=== PATIENT | male | born 1950 | race Caucasian/White ===

== ENCOUNTER 2019-06-28 07:48 | Inpatient (IN) ==
--- NOTE | 2019-06-08 13:17 | PAT Medication Instructions ---
Medication Instructions Date of Service June 08, 2019 Home Medications hydrocodone-acetaminophen 1 tab PO Q12H PRN melatonin 10 mg PO HS PRN multivitamin 1 tab PO QAM tramadol 100 mg PO Q6H PRN DO NOT take the morning of surgery multivitamin 1 tab PO QAM Take morning of surgery With a small sip of water, OTHERWISE NOTHING TO EAT OR DRINK AFTER MIDNIGHT: hydrocodone-acetaminophen 1 tab PO Q12H PRN (if needed, may be taken up to four hours before surgery) tramadol 100 mg PO Q6H PRN (if needed, may be taken up to four hours before surgery) Take evening before surgery hydrocodone-acetaminophen 1 tab PO Q12H PRN (if needed) melatonin 10 mg PO HS PRN (if needed) tramadol 100 mg PO Q6H PRN (if needed) Other Notes If you have any questions please call us at [phone] or [phone] or [phone] or [phone]
--- NOTE | 2019-06-09 13:47 | Anesthesiology Consultation ---
Date of Service June 09, 2019 Assessment & Plan (1) Encounter for pre-operative examination: Chart Review Chart Review: Acceptable Risk for Surgery and Patient seen in Pre Admission Testing Teaching & Discussion Instructed NPO after midnight before surgery, except medications with 15 cc of water. Medication instructions provided according to the PAT guidelines. History Surgery Operation Date: 06/28/19 07:45 Proposed Procedures p L3-L5 Decompression and Fuision, L5-S1 Hardware Removal, Spinal Cord Monitoring - Jaycob Benson DO Height/Weight Height: 6 ft 3 in Weight: 75.7 kg Allergies Allergy/AdvReac Type Severity Reaction Status Date / Time Sulfa (Sulfonamide Allergy Unknown FEVER,SWEATS Verified 06/06/19 11:17 Antibiotics) WITH TOPICAL APPLICATION levofloxacin [From Levaquin] AdvReac Unknown MUSCLE Verified 06/06/19 11:17 JOINT ACHES APOAEQUORIN AdvReac Unknown FEVER, Uncoded 06/06/19 11:37 SWEATS Medications Home Medications Medication Instructions Recorded Confirmed Last Taken hydrocodone-acetaminophen 1 tab PO Q12H PRN 06/06/19 06/06/19 Unknown melatonin 10 mg PO HS PRN 06/06/19 06/06/19 Unknown multivitamin 1 tab PO QAM 06/06/19 06/06/19 Unknown tramadol 100 mg PO Q6H PRN 06/06/19 06/06/19 Unknown Past Medical History Medical History Arthritis Chronic obstructive pulmonary disease Has never used any inhalers Migraine HX Temporomandibular joint disorder CLICKS-DOES NOT LOCK Exercise / Class Metabolic Activity II 4-5 Yardwork/Stairs/Walk up hill (Denies CP or SOB with 16 step FOS, does many times per day) Past Surgical History Surgical History Fusion of spine LUMBAR History of tonsillectomy History of tooth extraction Past Anesthesia History No Hx of Anesthesia Complications and No Family Hx of Anesthesia Complications History of PONV No Hx of PONV and No Hx of Motion Sickness Social History Smoking Status: Former smoker Do You Dip or Chew Tobacco: No Smoking End Date: QUIT 2014 Hx Alcohol Use: No Hx Substance Use: No Review of Systems Pt denies any recent chest pain, shortness of breath, palpitations, cough, fever or URI. Physical Exam Vital Signs BP: 173/84 (reports systolic was 110 at surgeon's office yesterday, checks at home regularly and this is very high for him) P: 64bpm SPO2: 97% RA T: 98.4 F R: 16 ENMT Mouth: + dentures, + edentulous and + small oral opening Thyromental Distance: < 3.5 Finger Breadths (2) Mallampati Class: III Neck + shortened thyromental distance; neck extension not limited Respiratory normal respiratory effort Auscultation: lungs clear to auscultation bilaterally Cardiovascular Rate/Rhythm: regular rate and regular rhythm Heart Sounds: no murmur Vessels: no carotid bruit Extremities: no edema Testing Laboratory Results 06/09/19 13:58 06/09/19 13:58 PT 10.4 Seconds (9.0-12.0) 06/09/19 13:58 INR 1.0 (0.9-1.1) 06/09/19 13:58 APTT 22.8 Seconds (21.0-31.0) 06/09/19 13:58 Urine Color Yellow 06/09/19 Unknown Urine Appearance Clear (Clear) 06/09/19 Unknown Urine pH 5.5 (4.5-7.5) 06/09/19 Unknown Ur Specific [place] 1.029 (1.000-1.030) 06/09/19 Unknown Urine Protein Trace (Negative) H 06/09/19 Unknown Urine Glucose (UA) Negative (Negative) 06/09/19 Unknown Urine Ketones Negative (Negative) 06/09/19 Unknown Urine Nitrite Negative (Negative) 06/09/19 Unknown Ur Leukocyte Esterase Negative (Negative) 06/09/19 Unknown Urine WBC (Auto) 1-5 /hpf (0-5) 06/09/19 Unknown Urine RBC (Auto) 0-4 /hpf (0-4) 06/09/19 Unknown U Hyaline Cast (Auto) 1-5 /lpf (0-5) 06/09/19 Unknown U Epithel Cells (Auto) >30 /lpf (0-5) H 06/09/19 Unknown Urine Bacteria (Auto) Negative (Negative) 06/09/19 Unknown Blood Type A Negative 06/09/19 13:58 Antibody Screen NEGATIVE 06/09/19 13:58 Electrocardiogram Date: 06/09/19 Findings: + NSR @ (65bpm) Chest X-Ray Date: 06/09/19 Findings: + NAD
--- NOTE | 2019-06-09 14:24 | XRay Report ---
XR chest Pre-admission PA/Lat CLINICAL HISTORY: Preoperative chest COMPARISON STUDY: No previous studies for comparison. FINDINGS: The cardiac and mediastinal contours are normal. There is no evidence of focal pulmonary co nsolidation. There is no evidence of failure. No pleural effusions are visualized.[The patient is mil dly hyperinflated. IMPRESSION: No active disease in the chest. Electronically signed by: Pasha Santana M.D. 06/09/2019 2:22 PM
[2019-06-09 15:36] LABS: Basophils # (auto) 0.01 K/uL (0-0.2); Basophils % (auto) 0.1 %; Eosinophils # (auto) 0.12 K/uL (0-0.5); Eosinophils % (auto) 1.7 %; Hematocrit (blood only) 33.9 % (42-52); Hemoglobin 11.4 g/dL (14.0-18.0); Immature Granulocytes # (auto) 0.02 K/uL (0.00-0.02); Immature Granulocytes % (auto) 0.3 %; Lymphocytes % (auto) 14.3 %; Mean Corpuscular Hemoglobin 32.5 pg (25-34); Mean Corpuscular Hgb Conc 33.6 g/dL (32-36); Mean Corpuscular Volume 96.6 fL (80-100); Mean Platelet Volume 11.2 fL (7.4-10.4); Monocytes # (auto) 0.62 K/uL (0.11-0.59); Monocytes % (auto) 8.9 %; Neutrophils % (auto) 74.7 %; Platelet Count 160 K/uL (130-400); RDW Coefficient of Variation 13.7 % (11.5-14.5); RDW Standard Deviation 48.3 fL (36.4-46.3); Red Blood Count 3.51 M/uL (4.7-6.1); White Blood Count 6.97 K/uL (4.8-10.8)
[2019-06-09 15:42] LABS: Appearance Urine Clear (Clear); Bacteria Urine Automated Negative (Negative); Bilirubin Urine Negative (Negative); Blood Urine Negative (Negative); Color Urine Yellow; Epithelial Cell Urine Auto >30 /lpf (0-5); Glucose Urine UA Negative (Negative); Ketones Urine Negative (Negative); Leukocyte Esterase Urine Negative (Negative); Nitrite Urine Negative (Negative); Protein Urine Trace (Negative); RBC Urine Automated 0-4 /hpf (0-4); Specific Gravity Urine 1.029 (1.000-1.030); Urobilinogen Urine Negative (Negative); pH Urine 5.5 (4.5-7.5)
[2019-06-09 15:44] LABS: Calcium 8.7 mg/dl (8.5-10.1); Creatinine Clr Calc Pharmacy 65.6 ml/min; Est GFR (African American) 74.3; Est GFR (Non-African American) 64.1; Potassium 3.4 mmol/L (3.5-5.1)
[2019-06-09 16:10] LABS: Partial Thromboplastin Ratio 0.8; Partial Thromboplastin Time 22.8 Seconds (21.0-31.0); Prothrombin Time 10.4 Seconds (9.0-12.0)
[~2019-06-28 07:48] MED LIST: ACETAMINOPHEN 500 MG TAB PO SCH; CEFAZOLIN 1000MG 1,000 MG/7.5 ML SYR IV SCH; CeleBREX 200 MG CAP PO SCH; GABAPENTIN 300 MG CAP PO SCH; HYDROmorphone INJ 2 MG/ML SYR/VIAL ONE; LR 15ML/HR IV SCH; MIDAZOLAM HCL 1 MG/ML 2ML VIAL ONE; fentaNYL citrate 100 MCG/2 ML VIAL ONE
--- NOTE | 2019-06-28 09:24 | History & Physical Bridge Note ---
Date of Service June 28, 2019 History & Physical Bridge Note I have examined the patient, reviewed the History & Physical and in the interval since the performance of the History & Physical I have noted the following changes of clinical significance: no changes noted
--- NOTE | 2019-06-28 09:24 | History & Physical Report ---
Date of Service June 28, 2019 Assessment & Plan (1) Neurogenic claudication due to lumbar spinal stenosis: L3-L5 decompression fusion hardware removal L5-S1 Present on Admission?: Yes History of Present Illness Chief Complaint: Back and leg pain Primary Care Provider: Rosalinda Galvez DO This is a 68-year-old male well-known to me that presents with worsening back and leg pain. After failing extensive course of nonoperative care is here for surgical intervention. Allergies Allergy/AdvReac Type Severity Reaction Status Date / Time Sulfa (Sulfonamide Allergy Intermediate FEVER,SWEATS Verified 06/28/19 08:24 Antibiotics) WITH TOPICAL APPLICATION levofloxacin [From Levaquin] AdvReac Intermediate MUSCLE Verified 06/28/19 08:24 JOINT ACHES APOAEQUORIN AdvReac Mild FEVER, Uncoded 06/28/19 08:24 SWEATS Home Medications Home Medications Medication Instructions Recorded Confirmed Type hydrocodone-acetaminophen 1 tab PO Q12H PRN 06/06/19 06/28/19 History melatonin 10 mg PO HS PRN 06/06/19 06/28/19 History multivitamin 1 tab PO QAM 06/06/19 06/28/19 History tramadol 100 mg PO Q6H PRN 06/06/19 06/28/19 History cetirizine [Zyrtec] 5 mg PO DAILY PRN 06/28/19 06/28/19 History pseudoephedrine HCl [Sudafed] 30 mg PO Q4 PRN 06/28/19 06/28/19 History Past Med/Surg History Medical History Arthritis Chronic obstructive pulmonary disease Has never used any inhalers Migraine HX Temporomandibular joint disorder CLICKS-DOES NOT LOCK Surgical History Fusion of spine LUMBAR History of tonsillectomy History of tooth extraction Social History Preferred Language: Pakistani Communication Ability: Effective Human Factors Engineer Required: No Beliefs That Will Affect Care: None Current Living Situation: Spouse and Family Other Information That Helps Us Care for You: No Feels Safe at Home: Yes Safety Concerns: Feels Safe At This Time Smoking Status: Former smoker Do You Dip or Chew Tobacco: No ; Smoking End Date: 2014 ; Second Hand Exposure: No ; Hx Alcohol Use: No Hx Substance Use: No Physical Exam Physical Exam: Patient is alert and oriented neurologically intact. Results & Data Vital Signs (Past 12 Hours) Vital Signs Temp Pulse Resp BP Pulse Ox 06/28/19 08:29 37.0 C 73 16 148/88 H 97
[2019-06-28] MEDS ORDERED: ATROPINE SULFATE 0.1 MG/ML 10ML SYR IV PRN (09:25)
[2019-06-28] MEDS ORDERED: ONDANSETRON INJ 2 MG/ML 2 ML VIAL IV PRN ×2 (09:25→13:42)
[2019-06-28] MEDS ORDERED: ePHEDrine sulfate 50 MG/ML AMP IV PRN (09:25)
[2019-06-28] MEDS ORDERED: BUPIVACAINE/EPINEPHRINE 0.5% MPF 1:200,000 10 ML VIAL ONE (09:36)
[2019-06-28] MEDS ORDERED: BACITRACIN INJ 50,000 UNIT VIAL ONE (09:36)
[2019-06-28] MEDS ORDERED: NEOSTIGMINE METHYLSULFATE 1 MG/ML 10ML VIAL ONE (09:42)
[2019-06-28] MEDS ORDERED: LIDOCAINE HCL 2% 2 ML VIAL/AMP(20MG/ML) INFIL ONE (09:42)
[2019-06-28] MEDS ORDERED: ONDANSETRON INJ 2 MG/ML 2 ML VIAL ONE (09:42)
[2019-06-28] MEDS ORDERED: PROPOFOL IV EMULSION 10 MG/ML 20 ML VIAL IV ONE (09:42)
[2019-06-28] MEDS ORDERED: ROCURONIUM BROMIDE 10 MG/ML 5 ML VIAL ONE (09:42)
[2019-06-28] MEDS ORDERED: DEXAMETHASONE SOD INJ 4 MG/ML VIAL ONE (09:42)
[2019-06-28] MEDS ORDERED: GLYCOPYRROLATE 0.2 MG/ML VIAL ONE (09:42)
[2019-06-28] MEDS ORDERED: HYDROmorphone INJ 2 MG/ML SYR/VIAL ONE (09:43)
[2019-06-28] MEDS ORDERED: fentaNYL citrate 100 MCG/2 ML VIAL ONE ×4 (10:25→12:05)
[2019-06-28] MEDS ORDERED: CEFAZOLIN 250 MG/ML 1 GM VIAL ONE (10:33)
[2019-06-28] MEDS ORDERED: FLOSEAL HEMOSTATIC MATRIX 10ML TOP ONE (10:58)
[2019-06-28] MEDS ORDERED: LARYING-O-JET KIT (LTA) ONE (11:37)
[2019-06-28] MEDS ORDERED: SODIUM CHLORIDE 0.9% INJ 10 ML VIAL ONE (11:37)
[2019-06-28] MEDS ORDERED: ALBUMIN HUMAN 5% 12.5 GM/250 ML VIAL IV ONE (11:50)
--- NOTE | 2019-06-28 12:30 | Operative Report ---
Post Operative Report Pre & Post Diagnosis Operation Date: 06/28/19 09:55 Pre-Op Diagnosis: Lumbar Spinal Stenosis with Neurogenic Claudication Post-Op Diagnosis: Lumbar Spinal Stenosis with Neurogenic Claudication I identified the patient and participated in the time-out.: Yes Procedure Operation Date: 06/28/19 09:55 Actual Procedures #1 removal of posterior instrumentation L5-S1. #2 expiration of fusion L5-S1. #3 lumbar decompression with bilateral medial facetectomies foraminotomies L3-4 L4-5. #4 posterior spinal fusion L3-4 L4-5 per #5 placement posterior instrumentation L3-4 L4-5 per #6 interbody fusion L4-5 per #7 placement of peek cage 13 x 26 mm L4-5 per #8 placement locally harvested morselized autograft in the posterior lateral gutters. #9 placement infuse collagen sponge count master graft in the posterior lateral gutters and ostial amp and interbody space. Surgeon Jaycob Benson, DO Air Conditioning Engineer None Estimated Blood Loss 475 Findings Consistent with Post-Op Diagnosis Specimens None Indications This is a 68-year-old male well-known to me the presents with a missed diagnosis after failing stents course of nonoperative care is here for surgical invention. Description of Procedure Patient was met with identified informed consent obtained. Patient was then taken to the operative suite underwent an patient placed in prone position check stable to posterior frame all bony prominences well-padded eyes inspected to ensure no external pressure placed upon. This point the lumbar spine was prepped and draped in a sterile fashion. Sharp dissection with assistance of Bovie cautery was performed down to and exposing the lamina and transverse processes of L3-L4 and the instrumentation L5 and S1 levels bilaterally. I then proceeded move the hardware bilaterally explore the fusion mass noting it to be intact. Then performed a complete laminectomy of L4 and L3 from a caudal cephalad fashion including bilateral medial facetectomies and foraminotomies addressing severe stenosis. Pedicle screws were then placed in L3-L4-L5 bilaterally with assistance of fluoroscopy the purposes brandon placed. By way of a transforaminal portion left complete discectomy was performed endplates curetted to subcortical bleeding bone and a 13 x 26 mm peek cage filled with osteo-bone graft tapped in position. The rods were then locked in final position bilaterally. The transverse processes of L3-L4-L5 bur to subcortical bleeding bone. Infuse collagen sponge master graft local autograft placed in the posterior lateral gutters. 15 round JAXON drain inserted. The incision was then closed with 1 Vicryl in the fascia 2-0 Vicryl subcutaneously and 4 Monocryl for final skin closure. Steri-Strip sterile dressings placed. Patient will continue PACU stable condition. Please note spinal cord monitoring was utilized that the procedure no changes noted. I attest to the content of the Intraoperative Record and any orders documented therein. Any exceptions are noted below.
[2019-06-28] MEDS: fentaNYL citrate 100 MCG/2 ML VIAL IV PRN ×4 (12:44→12:59)
[2019-06-28] MEDS: HYDROmorphone INJ 2 MG/ML SYR/VIAL IV PRN ×2 (13:04→13:09)
--- NOTE | 2019-06-28 13:36 | Fluoroscopy Report ---
FL lumbar spine 2-3V CLINICAL HISTORY: L3-L5 DECOMPRESSION AND FUSION/ L5-S1 HARDWARE REMOVAL COMPARISON STUDY: None FLUOROSCOPY TIME: 17 seconds NUMBER OF FLUOROSCOPIC IMAGES: 2 FINDINGS: Image intensifier support for L5-S1 hardware removal as well as L3-L5 decompression and fus ion IMPRESSION: Image support for lumbar laminectomy and fusion as well as hardware removal. ACT 112: Negative or not required by law. The above report was generated using voice recognition software. It may contain grammatical, syntax or spelling errors. Electronically signed by: Mello Oleary M.D. 06/28/2019 1:35 PM
[2019-06-28] MEDS ORDERED: MAGNESIUM HYDROXIDE SUSP 30 ML UDC PO PRN (13:42)
[2019-06-28] MEDS ORDERED: CETIRIZINE HCL 10 MG TABLET PO PRN (13:42)
[2019-06-28] MEDS ORDERED: bisacodyL 10 MG SUPP PR PRN (13:42)
[2019-06-28] MEDS ORDERED: PROMETHAZINE HCL 12.5 MG in SODIUM CHLORIDE 0.9% 50 ML IV PRN (13:42)
[2019-06-28] MEDS ORDERED: LORazepam 0.5 MG/1 ML VIAL IV PRN (13:42)
[2019-06-28] MEDS ORDERED: ACETAMINOPHEN 1,000 MG/100 ML VIAL IV PRN (13:42)
[2019-06-28] MEDS ORDERED: HYDROmorphone INJ 0.5 MG/0.5 ML SYR IV PRN (13:42)
[2019-06-28] MEDS ORDERED: LORazepam 0.5 MG TAB PO PRN (13:42)
[2019-06-28] MEDS ORDERED: NALOXONE HCL 0.4 MG/1 ML VIAL/CARP IV PRN (13:42)
[2019-06-28] MEDS ORDERED: METOCLOPRAMIDE HCL INJ 5 MG/ML 2 ML VIAL IV PRN (13:42)
[2019-06-28] MEDS ORDERED: SOD PHOSPHATE/SOD BIPHOSPHATE ENEMA 132 ML BTL PR PRN (13:42)
[2019-06-28] MEDS ORDERED: PSEUDOEPHEDRINE HCL 30 MG TAB PO PRN (13:42)
[2019-06-28] MEDS ORDERED: FAMOTIDINE 20 MG TAB PO PRN (13:42)
[2019-06-28] MEDS ORDERED: ACETAMINOPHEN 500 MG TAB PO PRN (13:42)
[2019-06-28] MEDS ORDERED: DO NOT ADMINISTER FLU VACCINE PRN (13:42)
[2019-06-28] MEDS ORDERED: DO NOT ADMINISTER PNEUMOCOCCAL VACCINE PRN (13:42)
[2019-06-28] MEDS ORDERED: ALUMINUM/MAGNESIUM SUSP 30 ML UDC PO PRN (13:42)
[2019-06-28] MEDS ORDERED: ONDANSETRON 4 MG OD TAB PO PRN (13:42)
[2019-06-28] MEDS ORDERED: HYDROmorphone INJ 1 MG/ML SYRINGE IV PRN (13:42)
[2019-06-28] MEDS: SODIUM CHLORIDE 0.9% 1000ML 1,000 ML IV SCH ×2 (13:45→20:13)
--- NOTE | 2019-06-28 14:27 | Anesthesiology Progress Note ---
Date of Service June 28, 2019 Anesthesia Post Procedure Vital Signs Vital Signs: Temp Pulse Pulse Resp BP BP Pulse Ox 06/28/19 13:25 71 16 141/83 H 99 06/28/19 13:15 76 16 129/84 97 06/28/19 13:05 36.3 C L 80 16 129/74 97 06/28/19 12:55 72 16 149/90 H 100 06/28/19 12:45 70 16 144/83 H 100 06/28/19 12:38 36.4 C L 84 16 155/83 H 100 06/28/19 08:29 37.0 C 73 16 148/88 H 97 Pain Intensity Lower Back: Pain Intensity: 6 Transfer of Care Handoff Completed per policy Notes Mental Status: alert / awake / arousable Patient Amnestic to Procedure: Yes Nausea / Vomiting: adequately controlled Pain: adequately controlled Airway Patency, RR, SpO2: stable & adequate BP & HR: stable & adequate Hydration State: stable & adequate Anesthetic Complications: no major complications apparent
[2019-06-28] MEDS: KETOROLAC TROMETHAMINE 15 MG/ML VIAL IV SCH ×2 (14:58→20:16)
--- NOTE | 2019-06-28 15:38 | Hospitalist Consultation ---
Date of Consultation June 28, 2019 Assessment & Plan (1) S/P spinal surgery: This is a 68-year-old male with PMH of right leg neuropathic pain, COPD, chronic pain syndrome, stable AAA without rupture and other medical problems listed below who is POD#0 s/p L3-L5 decompression and fusion with spinal cord monitoring by Dr. Benson. -POD#0 s/p L3-L5 decompression and fusion with spinal cord monitoring by Dr. Benson -Pt is doing well post-operatively -Per ortho for pain control, wound care, anticoagulation and activities -Monitor H&H, continue incentive spirometry, PT/OT when appropriate (2) AAA (abdominal aortic aneurysm) without rupture: H/o AAA without rupture. Had aortic ultrasound on Jun 15 2019 that showed enlarging fusiform AAA with distal measurement: 4.6 cm x 4.0 cm. (3.6 x 3.0 cm previously in 2017) -Control BP with PRN hydralazine- not on any home medications -Should follow up with vascular surgery upon discharge (3) Neuropathic pain of right lower extremity: Takes tramadol 100mg Q6H at home for neuropathic pain of RLE, specifically R foot PCP: Leonor Dispo: Per primary service Patient seen in collaboration with Dr. Lee. Please see addendum. Thank you for this consultation. We will follow the patient with you during their hospital stay. You can reach a [facility] via pager @ [phone]. Supervising Physician Co-Signing Physician Notes Pt was seen an examined. Agreed with Piedad MOORE exam, assessment and plan. 68-year-old male with PMH of right leg neuropathic pain, COPD, chronic pain syndrome, stable AAA without rupture, s/p L3-L5 decompression and fusion with spinal cord monitoring performed today by Dr. Benson after failing outpatient conservative management. No post op complication. Continue pain control. will monitor H/H in am. Fall precaution. PT/OT eval. Continue conservative management. Will monitor BP due to the history AAA. Will need to follow with vascular outpatient for surveillance. Will continue monitor during this hospital course. MD Rosa History of Present Illness Reason for Consultation: Postop medical management Attending Physician: Jaycob Benson DO History of Present Illness This is a 68-year-old male with PMH of right leg neuropathic pain, COPD, chronic pain syndrome, stable AAA without rupture and other medical problems listed below who is POD#0 s/p L3-L5 decompression and fusion with spinal cord monitoring by Dr. Benson. Patient feeling pretty well postoperatively. Endorsing moderate surgical site pain but denies distal paresthesias or leg pain. Tolerating clear diet without any nausea vomiting or abdominal pain. No lightheadedness, visual changes, chest pain, palpitations or shortness of breath. No dysuria or issues urinating-catheter in place. Last bowel movement was normal and was 2 days ago. PCP is Dr. Galvez. Allergies Allergy/AdvReac Type Severity Reaction Status Date / Time Sulfa (Sulfonamide Allergy Intermediate FEVER,SWEATS Verified 06/28/19 08:24 Antibiotics) WITH TOPICAL APPLICATION levofloxacin [From Levaquin] AdvReac Intermediate MUSCLE Verified 06/28/19 08:24 JOINT ACHES APOAEQUORIN AdvReac Mild FEVER, Uncoded 06/28/19 08:24 SWEATS Home Medications Home Medications Medication Instructions Recorded Confirmed Type hydrocodone-acetaminophen 1 tab PO Q12H PRN 06/06/19 06/28/19 History melatonin 10 mg PO HS PRN 06/06/19 06/28/19 History multivitamin 1 tab PO QAM 06/06/19 06/28/19 History tramadol 100 mg PO Q6H PRN 06/06/19 06/28/19 History cetirizine [Zyrtec] 5 mg PO DAILY PRN 06/28/19 06/28/19 History pseudoephedrine HCl [Sudafed] 30 mg PO Q4 PRN 06/28/19 06/28/19 History Patient History Medical History AAA (abdominal aortic aneurysm) without rupture Arthritis Chronic obstructive pulmonary disease Has never used any inhalers Former smoker Migraine HX Neuropathic pain of right lower extremity Temporomandibular joint disorder CLICKS-DOES NOT LOCK Surgical History Fusion of spine LUMBAR History of tonsillectomy History of tooth extraction Family History Other Heart disease Social History Preferred Language: Grenadian Communication Ability: Effective Fws Faculty Assistant Required: No Beliefs That Will Affect Care: None Current Living Situation: Spouse and Family Other Information That Helps Us Care for You: No Feels Safe at Home: Yes Safety Concerns: Feels Safe At This Time Smoking Status: Former smoker Do You Dip or Chew Tobacco: No ; Smoking End Date: QUIT 2014- ~60 pack years ; Second Hand Exposure: No ; Hx Alcohol Use: No Hx Substance Use: No Review of Systems Review of Systems: At least ten systems reviewed and negative except as noted in the HPI. Physical Exam Physical Exam: General Appearance: WD/WN, vitals as above, NAD, sitting up in bed, pleasant, conversing easily Head: normocephalic, atraumatic Eyes: normal inspection, PERRL, conjunctivae normal, anicteric sclerae ENT: external ear and nose normal, oropharynx normal Neck: trachea midline, no thyromegaly normal visual inspection Respiratory: normal respiratory effort, lungs clear to auscultation, no wheeze, rales, rhonchi. Normal insp/exp effort, no accessory muscle use Cardiovascular: regular rate, rhythm, no murmur, normal peripheral pulses. Vessels: no JVD or carotid bruit Chest: normal inspection of chest Abdomen/GI: normal bowel sounds, soft, nontender, no hepatosplenomegaly : Guerrero catheter in place draining light yellow urine Extremities/Musculoskelatal: Lumbosacral dressing clean, dry, intact. JAXON drain visualized. No cyanosis or clubbing, extremities motor strength 5/5 Neurologic: PERRL,CN's II-XI intact bilaterally and moves all extremities Psychiatric: A+Ox3, euthymic affect Skin: no rashes, normal color, warm/dry Results & Data Vital Signs (Past 12 Hours) Vital Signs Temp Pulse Pulse Pulse Resp BP BP 06/28/19 15:24 36.5 C 60 16 156/83 H 06/28/19 14:35 74 16 150/79 H 06/28/19 14:05 65 16 140/76 06/28/19 13:35 36.4 C L 73 16 161/83 H 06/28/19 13:25 71 16 141/83 H 06/28/19 13:15 76 16 129/84 06/28/19 13:05 36.3 C L 80 16 129/74 06/28/19 12:55 72 16 149/90 H 06/28/19 12:45 70 16 144/83 H 06/28/19 12:38 36.4 C L 84 16 155/83 H 06/28/19 08:29 37.0 C 73 16 148/88 H Pulse Ox 06/28/19 15:24 94 06/28/19 14:35 94 06/28/19 14:05 100 06/28/19 13:35 100 06/28/19 13:25 99 06/28/19 13:15 97 06/28/19 13:05 97 06/28/19 12:55 100 06/28/19 12:45 100 06/28/19 12:38 100 06/28/19 08:29 97
[2019-06-28] MEDS ORDERED: HydrALAZINE 10 MG TAB PO PRN (17:02)
[2019-06-28] MEDS: TRAMADOL HCL 50 MG TABLET PO PRN ×2 (18:11→23:13)
[2019-06-28] MEDS ORDERED: COUGH DROP (SUGAR FREE) LOZ 24 LOZ/1 BOX BUCCAL ONE (18:11)
[2019-06-28] MEDS: CEFAZOLIN 2000MG 2,000 MG/15 ML SYR IV SCH (18:15)
[2019-06-28] MEDS: OXYCODONE HCL IR 5 MG TAB (IMMEDIATE RELEASE) PO PRN (20:15)
[2019-06-28] MEDS: DOCUSATE SODIUM/SENNA 50/8.6MG TAB PO SCH (20:20)
[2019-06-29] MEDS: OXYCODONE HCL IR 5 MG TAB (IMMEDIATE RELEASE) PO PRN ×6 (00:16→22:11)
[2019-06-29] MEDS: KETOROLAC TROMETHAMINE 15 MG/ML VIAL IV SCH ×2 (02:24→08:49)
[2019-06-29] MEDS: CEFAZOLIN 2000MG 2,000 MG/15 ML SYR IV SCH (02:24)
[2019-06-29] MEDS: POLYETHYLENE (MIRALAX) 17 GM PACK PO SCH ×4 (05:52→23:49)
[2019-06-29 06:22] LABS: Basophils # (auto) 0.01 K/uL (0-0.2); Basophils % (auto) 0.1 %; Hematocrit (blood only) 24.2 % (42-52); Hemoglobin 8.2 g/dL (14.0-18.0); Immature Granulocytes # (auto) 0.01 K/uL (0.00-0.02); Immature Granulocytes % (auto) 0.1 %; Lymphocytes # (auto) 0.53 K/uL (1.2-3.4); Lymphocytes % (auto) 6.1 %; Mean Corpuscular Hemoglobin 32.9 pg (25-34); Mean Corpuscular Hgb Conc 33.9 g/dL (32-36); Mean Corpuscular Volume 97.2 fL (80-100); Mean Platelet Volume 10.8 fL (7.4-10.4); Monocytes # (auto) 0.75 K/uL (0.11-0.59); Monocytes % (auto) 8.7 %; Neutrophils # (auto) 7.32 K/uL (1.4-6.5); Platelet Count 113 K/uL (130-400); RDW Coefficient of Variation 13.7 % (11.5-14.5); RDW Standard Deviation 48.5 fL (36.4-46.3); Red Blood Count 2.49 M/uL (4.7-6.1); White Blood Count 8.62 K/uL (4.8-10.8)
[2019-06-29] MEDS: TRAMADOL HCL 50 MG TABLET PO PRN ×4 (06:30→20:27)
[2019-06-29 06:59] LABS: BUN Creatinine Ratio 17.8 (10-20); Calcium 8.3 mg/dl (8.5-10.1); Creatinine Clr Calc Pharmacy 71.2 ml/min; Est GFR (African American) 85.7; Est GFR (Non-African American) 73.9; Potassium 4.3 mmol/L (3.5-5.1)
--- NOTE | 2019-06-29 07:36 | Hospitalist Progress Note ---
Date of Service June 29, 2019 Assessment & Plan (1) S/P spinal surgery: This is a 68-year-old male with PMH of right leg neuropathic pain, COPD, chronic pain syndrome, stable AAA without rupture and other medical problems listed below who is POD#1 s/p L3-L5 decompression and fusion with spinal cord monitoring by Dr. Benson. -POD#1 s/p L3-L5 decompression and fusion with spinal cord monitoring by Dr. Benson -Pt is doing well post-operatively -Per ortho for pain control, wound care, anticoagulation and activities -Monitor H&H, continue incentive spirometry, PT/OT when appropriate Acute blood loss anemia - post. surg., and poss. dilutional - JAXON drain 110cc overnight - current Hgb 8.2, cont. to monitor (2) AAA (abdominal aortic aneurysm) without rupture: H/o AAA without rupture. Had aortic ultrasound on Jun 15 2019 that showed enlarging fusiform AAA with distal measurement: 4.6 cm x 4.0 cm. (3.6 x 3.0 cm previously in 2017) -Control BP with PRN hydralazine- not on any home medications -Should follow up with vascular surgery upon discharge (3) Neuropathic pain of right lower extremity: Takes tramadol 100mg Q6H at home for neuropathic pain of RLE, specifically R foot - currently concerned about his pain regimen as outpt, says he follows w/ pain clinic PCP: Leonor Dispo: Per primary service Thank you for this consultation. We will follow the patient with you during their hospital stay. You can reach a member of the [facility] Team 19/01 via pager @ [phone]. Subjective No acute events overnight. Pt is laying in bed, in NAD. he is worried about his pain management outside of hospital. says he follows with PCP and pain clinic. Currently denies any chest pain, shortness of breath, fever, chills, abd. pain, nausea, vomiting. Says he eats and has chronic constipation. Review of Systems Review of Systems: All systems reviewed & are unremarkable except as noted in HPI & below Constitutional: no fever and no chills Respiratory: no cough, no dyspnea and no pain on inspiration Cardiovascular: no chest pain and no palpitations Gastrointestinal: no abdominal pain, no nausea and no vomiting Physical Exam Physical Exam: General Appearance: pt is sitting up in bed, in NAD Head: normocephalic, atraumatic Eyes: normal inspection, PERRL, EOMI, conjunctivae normal, anicteric sclerae ENT: external ear and nose normal, oropharynx normal Neck: trachea midline, no thyromegaly normal visual inspection Respiratory: normal respiratory effort, lungs clear to auscultation, no wheeze, rales, rhonchi Cardiovascular: regular rate, rhythm, no murmur, normal peripheral pulses. Vessels: no JVD or carotid bruit Chest: normal inspection of chest Abdomen/GI: normal bowel sounds, soft, nontender, nondistended, no guarding : Guerrero catheter in place draining light yellow urine Extremities/MSK: Lumbosacral dressing clean, dry, intact. JAXON w/ serosang. fluid. No cyanosis or clubbing, extremities motor strength 5/5 Neurologic: PERRL,CN's II-XI intact bilaterally and moves all extremities Psychiatric: A+Ox3, euthymic affect Skin: no rashes, normal color, warm/dry Results & Data Vital Signs (Past 12 Hours) Vital Signs Temp Pulse Resp BP Pulse Ox 06/29/19 07:00 36.6 C 66 16 126/70 97 06/29/19 02:26 36.7 C 60 16 118/68 97 06/28/19 23:15 36.4 C L 62 15 144/74 H 97 06/28/19 20:49 146/73 H Laboratory Results 06/29/19 06/29/19 06/29/19 Range/Units 08:19 05:45 05:45 WBC 8.62 (4.8-10.8) K/uL RBC 2.49 L (4.7-6.1) M/uL Hgb 8.2 L (14.0-18.0) g/dL Hct 24.2 L (42-52) % MCV 97.2 (80-100) fL MCH 32.9 (25-34) pg MCHC 33.9 (32-36) g/dL RDW Std Deviation 48.5 H (36.4-46.3) fL RDW Coeff of Pam 13.7 (11.5-14.5) % Plt Count 113 L (130-400) K/uL MPV 10.8 H (7.4-10.4) fL Immature Gran % (Auto) 0.1 % Neut % (Auto) 85.0 % Lymph % (Auto) 6.1 % Franklin % (Auto) 8.7 % Eos % (Auto) 0.0 % Baso % (Auto) 0.1 % Immature Gran # (Auto) 0.01 (0.00-0.02) K/uL Neut # (Auto) 7.32 H (1.4-6.5) K/uL Lymph # (Auto) 0.53 L (1.2-3.4) K/uL Franklin # (Auto) 0.75 H (0.11-0.59) K/uL Eos # (Auto) 0.00 (0-0.5) K/uL Baso # (Auto) 0.01 (0-0.2) K/uL Sodium 140 (136-145) mmol/L Potassium 4.3 (3.5-5.1) mmol/L Chloride 109 H (98-107) mmol/L Carbon Dioxide 27 (21-32) mmol/L Anion Gap 4.0 (3-11) BUN 18 (7-18) mg/dl Creatinine 1.04 (0.6-1.4) mg/dl Est Cr Clr Drug Dosing 71.2 ml/min Est GFR ( Amer) 85.7 Est GFR (Non-Af Amer) 73.9 BUN/Creatinine Ratio 17.8 (10-20) Glucose 129 H (70-99) mg/dl Calcium 8.3 L (8.5-10.1) mg/dl Specimen Hemolysis Hepatitis C Ab Screen Pending Blood Type Antibody Screen Crossmatch 06/28/19 Range/Units 08:19 WBC (4.8-10.8) K/uL RBC (4.7-6.1) M/uL Hgb (14.0-18.0) g/dL Hct (42-52) % MCV (80-100) fL MCH (25-34) pg MCHC (32-36) g/dL RDW Std Deviation (36.4-46.3) fL RDW Coeff of Pam (11.5-14.5) % Plt Count (130-400) K/uL MPV (7.4-10.4) fL Immature Gran % (Auto) % Neut % (Auto) % Lymph % (Auto) % Franklin % (Auto) % Eos % (Auto) % Baso % (Auto) % Immature Gran # (Auto) (0.00-0.02) K/uL Neut # (Auto) (1.4-6.5) K/uL Lymph # (Auto) (1.2-3.4) K/uL Franklin # (Auto) (0.11-0.59) K/uL Eos # (Auto) (0-0.5) K/uL Baso # (Auto) (0-0.2) K/uL Sodium (136-145) mmol/L Potassium (3.5-5.1) mmol/L Chloride (98-107) mmol/L Carbon Dioxide (21-32) mmol/L Anion Gap (3-11) BUN (7-18) mg/dl Creatinine (0.6-1.4) mg/dl Est Cr Clr Drug Dosing ml/min Est GFR ( Amer) Est GFR (Non-Af Amer) BUN/Creatinine Ratio (10-20) Glucose (70-99) mg/dl Calcium (8.5-10.1) mg/dl Specimen Hemolysis Hepatitis C Ab Screen Blood Type A Negative Antibody Screen NEGATIVE Crossmatch See Detail Medications Administered Current Inpatient Medications Acetaminophen (Tylenol) 1,000 mg PO Q8H PRN PRN Reason: MILD Pain Rating 1,2,3 Stop: 07/28/19 13:41 Al Hydrox/Mg Hydrox/Simethicone (Maalox) 30 ml PO Q6H PRN PRN Reason: Dyspepsia Stop: 07/28/19 13:41 Bisacodyl (Dulcolax) 10 mg CO DAILY PRN PRN Reason: Constipation Stop: 07/28/19 13:41 Cetirizine HCl (Zyrtec) 5 mg PO DAILY PRN PRN Reason: Congestion Stop: 07/28/19 13:41 Diphenhydramine HCl (Benadryl Capsule) 25 mg PO Q6H PRN PRN Reason: Allergic Rhinitis/Insomnia Stop: 07/28/19 13:41 Famotidine (Pepcid) 20 mg PO Q12H PRN PRN Reason: Dyspepsia Stop: 07/28/19 13:41 Hydralazine HCl (Apresoline) 10 mg PO Q8H PRN PRN Reason: SBP >165 Stop: 07/28/19 17:14 Hydromorphone HCl (Dilaudid) 0.5 mg IV Q3H PRN PRN Reason: moderate pain (scale 4-6) Stop: 07/12/19 13:41 Hydromorphone HCl (Dilaudid) 1 mg IV Q3H PRN PRN Reason: severe pain (scale 7-10) Stop: 07/12/19 13:41 Last Admin: 06/28/19 14:26 Dose: 1 mg Documented by: Hydroxyzine HCl (Vistaril) 25 mg PO Q8H PRN PRN Reason: Anxiety Stop: 07/28/19 13:41 Lorazepam (Ativan) 0.5 mg in 1 mls @ 0.5 mls/min IV Q8H PRN PRN Reason: Sedation/Anxiety Stop: 07/28/19 13:41 Acetaminophen (Ofirmev) 1,000 mg in 100 mls @ 400 mls/hr IV Q8H PRN PRN Reason: MILD Pain Rating 1,2,3 Stop: 06/29/19 13:41 Promethazine HCl 12.5 mg/ (Sodium Chloride) 50.5 mls @ 204 mls/hr IV Q6H PRN PRN Reason: Nausea &/or Vomiting Stop: 07/28/19 13:41 Influenza Virus Vaccine Quadrival (Flu Vaccine, Do Not Administer) 1 ea N/A PRN PRN PRN Reason: Notification Stop: 07/28/19 13:41 Ketorolac Tromethamine (Toradol) 15 mg IV Q6H ESTER Stop: 06/29/19 09:01 Last Admin: 06/29/19 02:24 Dose: 15 mg Documented by: Lorazepam (Ativan) 0.5 mg PO Q8H PRN PRN Reason: Sedation/Anxiety Stop: 07/28/19 13:41 Magnesium Hydroxide (Milk Of Magnesia) 30 ml PO DAILY PRN PRN Reason: Constipation Stop: 07/28/19 13:41 Metoclopramide HCl (Reglan) 10 mg IV Q6H PRN PRN Reason: Nausea &/or Vomiting Stop: 07/28/19 13:41 Naloxone HCl (Narcan) 0.1 mg IV Q5M PRN; Protocol PRN Reason: Oversedation/Resp Depression Stop: 07/28/19 13:41 Ondansetron HCl (Zofran) 4 mg IV Q6H PRN PRN Reason: Nausea &/or Vomiting Stop: 07/28/19 13:41 Ondansetron HCl (Zofran Odt) 4 mg PO Q6H PRN PRN Reason: Nausea Stop: 07/28/19 13:41 Oxycodone HCl (Roxicodone Immediate Rel) 5 - 10 mg PO Q4H PRN PRN Reason: Moderate-Severe Pain Stop: 07/12/19 13:41 Last Admin: 06/29/19 04:17 Dose: 10 mg Documented by: Pneumococcal Polyvalent Vaccine (Pneumococcal Vacc, Do Not Administer) 1 ea N/A PRN PRN PRN Reason: Notification Stop: 07/28/19 13:41 Polyethylene Glycol (Miralax Powder Packet) 17 gm PO Q6 ESTER Stop: 07/29/19 05:59 Last Admin: 06/29/19 05:52 Dose: 17 gm Documented by: Pseudoephedrine HCl (Suphedrine Sinus Congestion) 30 mg PO Q4H PRN PRN Reason: Congestion Stop: 07/28/19 13:41 Senna/Docusate Sodium (Senokot S) 2 tab PO HS ESTER Stop: 07/28/19 20:59 Last Admin: 06/28/19 20:20 Dose: 2 tab Documented by: Sodium Biphosphate/Sodium Phosphate (Fleet Enema) 132 ml CO ONE PRN PRN Reason: Constipation Stop: 07/28/19 13:41 Tramadol HCl (Ultram) 50 - 100 mg PO Q4H PRN PRN Reason: Moderate-Severe Pain Stop: 07/28/19 13:41 Last Admin: 06/29/19 06:30 Dose: 100 mg Documented by:
[2019-06-29] MEDS ORDERED: SODIUM CHLORIDE 0.9% 250 ML IV PRN (10:47)
--- NOTE | 2019-06-29 10:49 | Orthopedic Progress Note ---
Date of Service June 29, 2019 Assessment & Plan (1) Neurogenic claudication due to lumbar spinal stenosis: At this time we will encourage physical therapy today advance his bowel regiment. I will transfuse 2 units today. Present on Admission?: Yes Subjective Patient is leg pain is improved. Back pain controlled. Physical Exam Physical Exam: On exam he is in the chair at the bedside. Is good strength testing. Appears comfortable. Results & Data Vital Signs (Past 12 Hours) Vital Signs Temp Pulse Resp BP Pulse Ox 06/29/19 07:00 36.6 C 66 16 126/70 97 06/29/19 02:26 36.7 C 60 16 118/68 97 06/28/19 23:15 36.4 C L 62 15 144/74 H 97
[2019-06-29 17:14] LABS: Hematocrit (blood only) 28.8 % (42-52); Hemoglobin 9.9 g/dL (14.0-18.0)
[2019-06-29] MEDS: DOCUSATE SODIUM/SENNA 50/8.6MG TAB PO SCH (20:27)
[2019-06-30] MEDS: TRAMADOL HCL 50 MG TABLET PO PRN ×5 (00:49→19:16)
[2019-06-30] MEDS: OXYCODONE HCL IR 5 MG TAB (IMMEDIATE RELEASE) PO PRN ×5 (03:23→22:09)
[2019-06-30] MEDS: POLYETHYLENE (MIRALAX) 17 GM PACK PO SCH ×3 (05:08→17:15)
[2019-06-30 05:50] LABS: Hematocrit (blood only) 32.8 % (42-52); Hemoglobin 10.8 g/dL (14.0-18.0)
[2019-06-30 06:24] LABS: BUN Creatinine Ratio 16.2 (10-20); Calcium 8.7 mg/dl (8.5-10.1); Creatinine Clr Calc Pharmacy 63.8 ml/min; Est GFR (African American) 75.1; Est GFR (Non-African American) 64.8; Potassium 3.9 mmol/L (3.5-5.1)
--- NOTE | 2019-06-30 08:31 | Hospitalist Progress Note ---
Date of Service June 30, 2019 Assessment & Plan (1) S/P spinal surgery: This is a 68-year-old male with PMH of right leg neuropathic pain, COPD, chronic pain syndrome, stable AAA without rupture and other medical problems listed below who is POD#2 s/p L3-L5 decompression and fusion with spinal cord monitoring by Dr. Benson. -POD#2 s/p L3-L5 decompression and fusion with spinal cord monitoring by Dr. Benson -Pt is doing well post-operatively -Per ortho for pain control, wound care, anticoagulation and activities -Monitor H&H, continue incentive spirometry, PT/OT when appropriate Acute blood loss anemia - post. surg., and poss. dilutional - JAXON continues to drain serosang. fluid but much decreased now - Hgb 8.2 yesterday, received 2 units of pRBCs, current Hgb 10.8 - cont. to monitor (2) AAA (abdominal aortic aneurysm) without rupture: H/o AAA without rupture. Had aortic ultrasound on Jun 15 2019 that showed enlarging fusiform AAA with distal measurement: 4.6 cm x 4.0 cm. (3.6 x 3.0 cm previously in 2017) -Control BP with PRN hydralazine- not on any home medications -Should follow up with vascular surgery upon discharge (3) Neuropathic pain of right lower extremity: Takes tramadol 100mg Q6H at home for neuropathic pain of RLE, specifically R foot - currently concerned about his pain regimen as outpt, says he follows w/ pain clinic PCP: Leonor Dispo: Per primary service Thank you for this consultation. We will follow the patient with you during their hospital stay. You can reach a member of the [facility] Hospitalist Team 19/01 via pager @ [phone]. Subjective Patient is sitting on the edge of the bed, in no acute distress. Walker is at his side, he says that he has been walking in the hallway with a walker by himself, without much difficulty. Received blood transfusion yesterday, 2 units. He says that he feels much better now. Back pain and leg pain much better controlled. Denies any fevers, chills, chest pain, shortness of breath, abdominal pain. However he has not had any BM yet. Discussed to try suppository, patient agreed. Review of Systems Review of Systems: All systems reviewed & are unremarkable except as noted in HPI & below Constitutional: no fever and no chills Respiratory: no cough, no dyspnea and no pain on inspiration Cardiovascular: no chest pain, no dyspnea on exertion, no palpitations and no edema Gastrointestinal: + constipation; no abdominal pain, no nausea and no vomiting Physical Exam Physical Exam: General Appearance: pt is sitting up at the edge of the bed, in NAD Head: normocephalic, atraumatic Eyes: normal inspection, PERRL, EOMI, conjunctivae normal, anicteric sclerae ENT: external ear and nose normal, oropharynx normal Neck: trachea midline, no thyromegaly normal visual inspection Respiratory: normal respiratory effort, lungs clear to auscultation, no wheeze, rales, rhonchi Cardiovascular: regular rate, rhythm, no murmur, normal peripheral pulses. Vessels: no JVD or carotid bruit Chest: normal inspection of chest Abdomen/GI: normal bowel sounds, soft, nontender, nondistended, no guarding Extremities/MSK: Lumbosacral dressing clean, dry, intact. JAXON w/ serosang. fluid. No cyanosis or clubbing, extremities motor strength 5/5, ambulates with a walker Neurologic: PERRL,CN's II-XI intact bilaterally and moves all extremities spontaneously and without much difficulty Psychiatric: A+Ox3, euthymic affect Skin: no rashes, normal color, warm/dry Results & Data Vital Signs (Past 12 Hours) Vital Signs Temp Pulse Pulse Resp BP Pulse Ox 06/30/19 07:29 37 C 74 18 132/70 93 06/30/19 06:26 37.2 C 78 18 126/69 93 06/29/19 23:53 37.2 C 06/29/19 23:20 37.8 C H 80 16 149/71 H 92 Laboratory Results 06/30/19 06/30/19 06/29/19 Range/Units 04:59 04:59 16:55 Hgb 10.8 L 9.9 L (14.0-18.0) g/dL Hct 32.8 L 28.8 L (42-52) % Sodium 136 (136-145) mmol/L Potassium 3.9 (3.5-5.1) mmol/L Chloride 102 (98-107) mmol/L Carbon Dioxide 27 (21-32) mmol/L Anion Gap 7.0 (3-11) BUN 19 H (7-18) mg/dl Creatinine 1.16 (0.6-1.4) mg/dl Est Cr Clr Drug Dosing 63.8 ml/min Est GFR ( Amer) 75.1 Est GFR (Non-Af Amer) 64.8 BUN/Creatinine Ratio 16.2 (10-20) Glucose 116 H (70-99) mg/dl Calcium 8.7 (8.5-10.1) mg/dl Hepatitis C Ab Screen (Neg) Blood Type Antibody Screen Crossmatch 06/29/19 06/28/19 Range/Units 08:19 08:19 Hgb (14.0-18.0) g/dL Hct (42-52) % Sodium (136-145) mmol/L Potassium (3.5-5.1) mmol/L Chloride (98-107) mmol/L Carbon Dioxide (21-32) mmol/L Anion Gap (3-11) BUN (7-18) mg/dl Creatinine (0.6-1.4) mg/dl Est Cr Clr Drug Dosing ml/min Est GFR ( Amer) Est GFR (Non-Af Amer) BUN/Creatinine Ratio (10-20) Glucose (70-99) mg/dl Calcium (8.5-10.1) mg/dl Hepatitis C Ab Screen Neg (Neg) Blood Type A Negative Antibody Screen NEGATIVE Crossmatch See Detail Medications Administered Current Inpatient Medications Acetaminophen (Tylenol) 1,000 mg PO Q8H PRN PRN Reason: MILD Pain Rating 1,2,3 Stop: 07/28/19 13:41 Al Hydrox/Mg Hydrox/Simethicone (Maalox) 30 ml PO Q6H PRN PRN Reason: Dyspepsia Stop: 07/28/19 13:41 Bisacodyl (Dulcolax) 10 mg OK DAILY PRN PRN Reason: Constipation Stop: 07/28/19 13:41 Cetirizine HCl (Zyrtec) 5 mg PO DAILY PRN PRN Reason: Congestion Stop: 07/28/19 13:41 Diphenhydramine HCl (Benadryl Capsule) 25 mg PO Q6H PRN PRN Reason: Allergic Rhinitis/Insomnia Stop: 07/28/19 13:41 Famotidine (Pepcid) 20 mg PO Q12H PRN PRN Reason: Dyspepsia Stop: 07/28/19 13:41 Hydralazine HCl (Apresoline) 10 mg PO Q8H PRN PRN Reason: SBP >165 Stop: 07/28/19 17:14 Hydromorphone HCl (Dilaudid) 0.5 mg IV Q3H PRN PRN Reason: moderate pain (scale 4-6) Stop: 07/12/19 13:41 Hydromorphone HCl (Dilaudid) 1 mg IV Q3H PRN PRN Reason: severe pain (scale 7-10) Stop: 07/12/19 13:41 Last Admin: 06/28/19 14:26 Dose: 1 mg Documented by: Hydroxyzine HCl (Vistaril) 25 mg PO Q8H PRN PRN Reason: Anxiety Stop: 07/28/19 13:41 Lorazepam (Ativan) 0.5 mg in 1 mls @ 0.5 mls/min IV Q8H PRN PRN Reason: Sedation/Anxiety Stop: 07/28/19 13:41 Promethazine HCl 12.5 mg/ (Sodium Chloride) 50.5 mls @ 204 mls/hr IV Q6H PRN PRN Reason: Nausea &/or Vomiting Stop: 07/28/19 13:41 Influenza Virus Vaccine Quadrival (Flu Vaccine, Do Not Administer) 1 ea N/A PRN PRN PRN Reason: Notification Stop: 07/28/19 13:41 Lorazepam (Ativan) 0.5 mg PO Q8H PRN PRN Reason: Sedation/Anxiety Stop: 07/28/19 13:41 Magnesium Hydroxide (Milk Of Magnesia) 30 ml PO DAILY PRN PRN Reason: Constipation Stop: 07/28/19 13:41 Metoclopramide HCl (Reglan) 10 mg IV Q6H PRN PRN Reason: Nausea &/or Vomiting Stop: 07/28/19 13:41 Naloxone HCl (Narcan) 0.1 mg IV Q5M PRN; Protocol PRN Reason: Oversedation/Resp Depression Stop: 07/28/19 13:41 Ondansetron HCl (Zofran) 4 mg IV Q6H PRN PRN Reason: Nausea &/or Vomiting Stop: 07/28/19 13:41 Ondansetron HCl (Zofran Odt) 4 mg PO Q6H PRN PRN Reason: Nausea Stop: 07/28/19 13:41 Oxycodone HCl (Roxicodone Immediate Rel) 5 - 10 mg PO Q4H PRN PRN Reason: Moderate-Severe Pain Stop: 07/12/19 13:41 Last Admin: 06/30/19 07:27 Dose: 10 mg Documented by: Pneumococcal Polyvalent Vaccine (Pneumococcal Vacc, Do Not Administer) 1 ea N/A PRN PRN PRN Reason: Notification Stop: 07/28/19 13:41 Polyethylene Glycol (Miralax Powder Packet) 17 gm PO Q6 ESTER Stop: 07/29/19 05:59 Last Admin: 06/30/19 05:08 Dose: 17 gm Documented by: Pseudoephedrine HCl (Suphedrine Sinus Congestion) 30 mg PO Q4H PRN PRN Reason: Congestion Stop: 07/28/19 13:41 Senna/Docusate Sodium (Senokot S) 2 tab PO HS ESTER Stop: 07/28/19 20:59 Last Admin: 06/29/19 20:27 Dose: 2 tab Documented by: Sodium Biphosphate/Sodium Phosphate (Fleet Enema) 132 ml OK ONE PRN PRN Reason: Constipation Stop: 07/28/19 13:41 Tramadol HCl (Ultram) 50 - 100 mg PO Q4H PRN PRN Reason: Moderate-Severe Pain Stop: 07/28/19 13:41 Last Admin: 06/30/19 06:39 Dose: 100 mg Documented by:
--- NOTE | 2019-06-30 08:34 | Anesthesiology Progress Note ---
Date of Service June 30, 2019 Anesthesia Post Procedure Vital Signs Vital Signs: Temp Pulse Pulse Pulse Resp BP BP 06/30/19 07:29 37 C 74 18 132/70 06/30/19 06:26 37.2 C 78 18 126/69 06/29/19 23:53 37.2 C 06/29/19 23:20 37.8 C H 80 16 149/71 H 06/29/19 20:22 70 149/71 H 06/29/19 15:14 36.8 C 70 18 144/70 H 06/29/19 14:11 36.7 C 71 16 152/78 H 06/29/19 13:41 36.8 C 71 16 135/76 06/29/19 13:26 36.8 C 70 16 136/66 06/29/19 13:25 36.8 C 70 16 136/66 06/29/19 13:06 36.7 C 70 18 145/74 H 06/29/19 13:05 36.7 C 70 18 145/74 H 06/29/19 12:43 36.9 C 69 16 142/68 H 06/29/19 12:15 36.3 C L 63 16 135/73 06/29/19 11:44 36.9 C 63 16 136/67 06/29/19 11:30 37.0 C 65 18 131/68 06/29/19 11:10 36.7 C 66 18 143/64 H Pulse Ox 06/30/19 07:29 93 06/30/19 06:26 93 06/29/19 23:53 06/29/19 23:20 92 06/29/19 20:22 97 06/29/19 15:14 99 06/29/19 14:11 99 06/29/19 13:41 100 06/29/19 13:26 99 06/29/19 13:25 99 06/29/19 13:06 99 06/29/19 13:05 99 06/29/19 12:43 98 06/29/19 12:15 100 06/29/19 11:44 99 06/29/19 11:30 99 06/29/19 11:10 96 Pain Intensity Lower Back: Pain Intensity: 6 Notes Mental Status: alert / awake / arousable and participated in evaluation Nausea / Vomiting: adequately controlled Pain: adequately controlled Airway Patency, RR, SpO2: stable & adequate BP & HR: stable & adequate Hydration State: stable & adequate
--- NOTE | 2019-06-30 08:40 | Orthopedic Progress Note ---
Date of Service June 30, 2019 Assessment & Plan (1) Neurogenic claudication due to lumbar spinal stenosis: At this time continue physical therapy monitor JAXON output anticipate discharge home tomorrow. Present on Admission?: Yes Subjective Back pain is controlled leg symptoms markedly improved. Physical Exam Physical Exam: Patient is in bed he is comfortable with excellent strength testing. Results & Data Vital Signs (Past 12 Hours) Vital Signs Temp Pulse Pulse Resp BP Pulse Ox 06/30/19 07:29 37 C 74 18 132/70 93 06/30/19 06:26 37.2 C 78 18 126/69 93 06/29/19 23:53 37.2 C 06/29/19 23:20 37.8 C H 80 16 149/71 H 92
[2019-06-30] MEDS: DOCUSATE SODIUM/SENNA 50/8.6MG TAB PO SCH (20:19)
[2019-07-01] MEDS: TRAMADOL HCL 50 MG TABLET PO PRN ×2 (00:21→07:45)
[2019-07-01] MEDS: POLYETHYLENE (MIRALAX) 17 GM PACK PO SCH ×2 (00:21→04:59)
[2019-07-01] MEDS: OXYCODONE HCL IR 5 MG TAB (IMMEDIATE RELEASE) PO PRN ×2 (04:58→10:05)
[2019-07-01 05:12] LABS: Hematocrit (blood only) 33.3 % (42-52); Hemoglobin 11.4 g/dL (14.0-18.0)
--- NOTE | 2019-07-01 09:48 | Hospitalist Progress Note ---
Date of Service July 01, 2019 Assessment & Plan (1) S/P spinal surgery: This is a 68-year-old male with PMH of right leg neuropathic pain, COPD, chronic pain syndrome, stable AAA without rupture and other medical problems listed below who is POD#3 s/p L3-L5 decompression and fusion with spinal cord monitoring by Dr. Benson. -POD#3 s/p L3-L5 decompression and fusion with spinal cord monitoring by Dr. Benson -Pt is doing well post-operatively -Per ortho for pain control, wound care, anticoagulation and activities -Monitor H&H, continue incentive spirometry, PT/OT when appropriate -hgb stable at 11.4 Acute blood loss anemia - post. surg., and poss. dilutional - JAXON continues to drain serosang. fluid but much decreased now (45 cc overnight) - received 2 units of pRBCs 2 days ago for hgb of 8.2, current Hgb 11.4 - cont. to monitor Constipation - pt reports chronic constipation - this is going to be exacerbated w/ opioid pain meds - used suppository yesterday and had a small BM - recommend to discharge on bowel regimen (2) AAA (abdominal aortic aneurysm) without rupture: H/o AAA without rupture. Had aortic ultrasound on Jun 15 2019 that showed enlarging fusiform AAA with distal measurement: 4.6 cm x 4.0 cm. (3.6 x 3.0 cm previously in 2017) -Control BP with PRN hydralazine- not on any home medications -Should follow up with vascular surgery as outpt upon discharge (3) Neuropathic pain of right lower extremity: Takes tramadol 100mg Q6H at home for neuropathic pain of RLE, specifically R foot - pain seems to be improved PCP: Leonor Dispo: Per primary service Thank you for this consultation. We will follow the patient with you during their hospital stay. You can reach a member of the [facility] Hospitalist Team 19/01 via pager @ [phone]. Subjective Patient is sitting up in bed, in no acute distress. Says he feels better and that he had a good night. He was walking earlier in a hallway with a walker. Had BM yesterday after suppository was used. Received blood transfusion, 2 units of pRBCs 2 days ago. JAXON drained 45 cc of serosang. fluid overnight. Hgb stable. Denies any fevers, chills, chest pain, shortness of breath, abdominal pain. However he has not had any BM yet. Discussed to try suppository, patient agreed. Review of Systems Review of Systems: All systems reviewed & are unremarkable except as noted in HPI & below Constitutional: no fever, no chills and no fatigue Respiratory: no cough, no dyspnea and no pain on inspiration Cardiovascular: no chest pain, no dyspnea on exertion, no palpitations and no edema Gastrointestinal: no abdominal pain, no nausea and no vomiting Physical Exam Physical Exam: General Appearance: pt is sitting up in bed, in NAD Head: normocephalic, atraumatic Eyes: normal inspection, PERRL, EOMI, conjunctivae normal, anicteric sclerae ENT: external ear and nose normal, oropharynx normal Neck: trachea midline, no thyromegaly normal visual inspection Respiratory: normal respiratory effort, lungs clear to auscultation, no wheeze, rales, rhonchi Cardiovascular: regular rate, rhythm, no murmur, normal peripheral pulses. Vessels: no JVD or carotid bruit Abdomen/GI: normal bowel sounds, soft, nontender, nondistended, no guarding Extremities/MSK: Lumbosacral dressing clean, dry, intact. JAXON w/ serosang. fluid. No cyanosis or clubbing, extremities motor strength 5/5, ambulates with a walker Neurologic: PERRL,CN's II-XI intact bilaterally and moves all extremities spontaneously and without much difficulty Psychiatric: A+Ox3, euthymic affect Skin: no rashes, normal color, warm/dry Results & Data Vital Signs (Past 12 Hours) Vital Signs Temp Pulse Resp BP Pulse Ox 07/01/19 06:35 36.6 C 69 16 130/70 95 06/30/19 23:37 36.8 C 65 16 124/68 93 Laboratory Results 07/01/19 Range/Units 05:01 Hgb 11.4 L (14.0-18.0) g/dL Hct 33.3 L (42-52) % Medications Administered Current Inpatient Medications Acetaminophen (Tylenol) 1,000 mg PO Q8H PRN PRN Reason: MILD Pain Rating 1,2,3 Stop: 07/28/19 13:41 Last Admin: 06/30/19 22:09 Dose: 1,000 mg Documented by: Al Hydrox/Mg Hydrox/Simethicone (Maalox) 30 ml PO Q6H PRN PRN Reason: Dyspepsia Stop: 07/28/19 13:41 Bisacodyl (Dulcolax) 10 mg IA DAILY PRN PRN Reason: Constipation Stop: 07/28/19 13:41 Last Admin: 06/30/19 22:09 Dose: 10 mg Documented by: Cetirizine HCl (Zyrtec) 5 mg PO DAILY PRN PRN Reason: Congestion Stop: 07/28/19 13:41 Diphenhydramine HCl (Benadryl Capsule) 25 mg PO Q6H PRN PRN Reason: Allergic Rhinitis/Insomnia Stop: 07/28/19 13:41 Famotidine (Pepcid) 20 mg PO Q12H PRN PRN Reason: Dyspepsia Stop: 07/28/19 13:41 Hydralazine HCl (Apresoline) 10 mg PO Q8H PRN PRN Reason: SBP >165 Stop: 07/28/19 17:14 Hydromorphone HCl (Dilaudid) 0.5 mg IV Q3H PRN PRN Reason: moderate pain (scale 4-6) Stop: 07/12/19 13:41 Hydromorphone HCl (Dilaudid) 1 mg IV Q3H PRN PRN Reason: severe pain (scale 7-10) Stop: 07/12/19 13:41 Last Admin: 06/28/19 14:26 Dose: 1 mg Documented by: Hydroxyzine HCl (Vistaril) 25 mg PO Q8H PRN PRN Reason: Anxiety Stop: 07/28/19 13:41 Lorazepam (Ativan) 0.5 mg in 1 mls @ 0.5 mls/min IV Q8H PRN PRN Reason: Sedation/Anxiety Stop: 07/28/19 13:41 Promethazine HCl 12.5 mg/ (Sodium Chloride) 50.5 mls @ 204 mls/hr IV Q6H PRN PRN Reason: Nausea &/or Vomiting Stop: 07/28/19 13:41 Influenza Virus Vaccine Quadrival (Flu Vaccine, Do Not Administer) 1 ea N/A PRN PRN PRN Reason: Notification Stop: 07/28/19 13:41 Lorazepam (Ativan) 0.5 mg PO Q8H PRN PRN Reason: Sedation/Anxiety Stop: 07/28/19 13:41 Magnesium Hydroxide (Milk Of Magnesia) 30 ml PO DAILY PRN PRN Reason: Constipation Stop: 07/28/19 13:41 Last Admin: 06/30/19 20:23 Dose: 30 ml Documented by: Metoclopramide HCl (Reglan) 10 mg IV Q6H PRN PRN Reason: Nausea &/or Vomiting Stop: 07/28/19 13:41 Naloxone HCl (Narcan) 0.1 mg IV Q5M PRN; Protocol PRN Reason: Oversedation/Resp Depression Stop: 07/28/19 13:41 Ondansetron HCl (Zofran) 4 mg IV Q6H PRN PRN Reason: Nausea &/or Vomiting Stop: 07/28/19 13:41 Ondansetron HCl (Zofran Odt) 4 mg PO Q6H PRN PRN Reason: Nausea Stop: 07/28/19 13:41 Oxycodone HCl (Roxicodone Immediate Rel) 5 - 10 mg PO Q4H PRN PRN Reason: Moderate-Severe Pain Stop: 07/12/19 13:41 Last Admin: 07/01/19 04:58 Dose: 10 mg Documented by: Pneumococcal Polyvalent Vaccine (Pneumococcal Vacc, Do Not Administer) 1 ea N/A PRN PRN PRN Reason: Notification Stop: 07/28/19 13:41 Polyethylene Glycol (Miralax Powder Packet) 17 gm PO Q6 ESTER Stop: 07/29/19 05:59 Last Admin: 07/01/19 04:59 Dose: 17 gm Documented by: Pseudoephedrine HCl (Suphedrine Sinus Congestion) 30 mg PO Q4H PRN PRN Reason: Congestion Stop: 07/28/19 13:41 Senna/Docusate Sodium (Senokot S) 2 tab PO HS ESTER Stop: 07/28/19 20:59 Last Admin: 06/30/19 20:19 Dose: 2 tab Documented by: Sodium Biphosphate/Sodium Phosphate (Fleet Enema) 132 ml IA ONE PRN PRN Reason: Constipation Stop: 07/28/19 13:41 Tramadol HCl (Ultram) 50 - 100 mg PO Q4H PRN PRN Reason: Moderate-Severe Pain Stop: 07/28/19 13:41 Last Admin: 07/01/19 07:45 Dose: 100 mg Documented by:
--- NOTE | 2019-07-01 10:22 | Discharge Summary ---
Date of Service July 01, 2019 Admission HPI Per Admitting Provider This is a 68-year-old male well-known to me that presents with worsening back and leg pain. After failing extensive course of nonoperative care is here for surgical intervention. Principal Diagnosis Lumbar spinal stenosis with neurogenic claudication Discharge Data Allergies Allergy/AdvReac Type Severity Reaction Status Date / Time Sulfa (Sulfonamide Allergy Intermediate FEVER,SWEATS Verified 06/28/19 08:24 Antibiotics) WITH TOPICAL APPLICATION levofloxacin [From Levaquin] AdvReac Intermediate MUSCLE Verified 06/28/19 08:24 JOINT ACHES APOAEQUORIN AdvReac Mild FEVER, Uncoded 06/28/19 08:24 SWEATS Consultations 06/28/19 13:42 Consult Case Management - Discharge Planning Routine Consult Hospitalist Routine Procedures Performed Operation Date: 06/28/19 09:55 Actual Procedures p L3-L5 Decompression and Fusion, Interbody L4-L5, Spinal Cord Monitoring(Not Applicable) - Jaycob Benson DO s L5-S1 Hardware Removal(Not Applicable) - Jaycob Benson DO Ordered Studies 06/28/19 09:55 FL fluoroscopy <1hr Routine FL lumbar spine 2-3V Routine Hospital Course (1) Neurogenic claudication due to lumbar spinal stenosis: Patient underwent multilevel lumbar decompression fusion tolerated this well was taken to orthopedic for postoperative. Postop day 1 is up and ambulating leg symptoms improved. Progressed to postop day #2. Postop day 3 had good strength testing JAXON drain decreased probably. Pain well controlled. Subsequently discharged home. Discharge orders and instructions from the chart for further review. Total Time Total Time Spent Total Time Spent (In Minutes): 20 minutes Discharge Plan Discharge Items Patient Disposition: Home - Self-Care Reason For Visit: THORACOLUMBAR & LUMBOSACRAL INTERVERTEBRAL DISC DI Discharge Diagnosis: Lumbar spinal stenosis with neurogenic claudication Activity: Per Instructions section Non-emergency contact: Primary Care Provider Call non-emergency contact if: you have any medication questions Follow-up/Referrals: Rosalinda Galvez DO [Primary Care Provider] - Diet: Regular Addtl Attending Provider Instructions: ACTIVITY RECOMMENDATIONS: SELF CARE INSTRUCTIONS AFTER THORACIC/LUMBAR FUSIONS 1. You may walk to your tolerance. It is good exercise for your legs and back. Expect some back and intermittent leg aches and pains. 2. You may perform "counter-top" level activities (make a sandwich, uzma with a project, etc.). 3. No bending or lifting of more than 10 pounds or back twisting of any nature (roll like a log when turning in bed). 4. You may ride in a car for 20-30 minutes at a time. No driving until after your first visit with your doctor. 5. Frequent changes of position and restricting sitting to 30 minutes at a time will help limit the amount of back spasms and stiffness you may experience. 6. You may discontinue the use of ambulatory aids (cane, crutches, etc.) once your strength and confidence allow. 7. You may machine setter supervisor the shower and let water strike your incision when you arrive home at least once daily. Do not take a tub bath, sit in a hot tub or go into a swimming pool until after your first recheck in the office. SPECIAL CARE INSTRUCTIONS: VERY IMPORTANT TO READ AND REVIEW A. Your surgical incision has been closed with a cosmetic suture under the skin that will dissolve in about 6 weeks. In 14 days, you can use a pair of clean scissors and cut the suture that is left outside of the skin at the ends of your incision. 1. The small skin tapes can be removed 7 days after surgery if they have not fallen off by that point. 2. You may keep the wound open to air as much as possible to promote healing after post-op day number 5 unless told otherwise by your doctor. 3. If you think the wound looks like it is becoming infected (redness or worsening drainage) and/or you are experiencing fever, chill or worsening back pain and muscle spasms, contact the office so that we may evaluate you as soon as possible. B. Complications are uncommon, but please contact us if you have any signs or symptoms of: 1. wound infection (fever higher than 102.5 degrees F, redness, separation of wound, drainage, or increasing pain from the incision) 2. blood clots in legs (pain, swelling, redness and warmth in legs) 3. urinary tract infection (fever higher than 102.5 degrees F, burning upon urination or increased frequency of urination) 4. nerve problems (inability to walk on your toes or heels, numbness, loss of bowel or bladder control) 5. any other symptoms that concern you C. Please call the office at if you have any concerns or questions about your operation or recovery. D. No smoking! Smoking drastically decreases the chance of a solid fusion. E. Do not take any anti-inflammatory medications (Indocin, Advil, Motrin, Aspirin, Naprosyn, etc.) as these may inhibit the chance of a solid fusion. Tylenol is okay to take for pain. MANAGING PAIN AFTER SPINAL SURGERY 1. Narcotic medication is intended for short-term use and will be provided for surgical pain. Surgical pain usually lasts for a period of 4-6 weeks. Narcotic medication includes Percocet, Vicodin, Darvocet, Tylenol #3 or Lortab. 2. Longer-term pain is more appropriately treated with non-narcotic medication such as Tylenol ES. 3. Muscle spasm is not appropriately treated with narcotics. Muscle relaxers such as Soma, Flexeril or Skelaxin can be used along with Tylenol ES. 4. Remember that we all live with some "aches and pains". This is not unusual or uncommon after an injury or as we get older. a. Back pain is expected and may include muscle spasms for 4 to 6 weeks after surgery. The pain should gradually improve. If the pain worsens for no apparent reason, please contact the office. b. Intermittent leg pain may also be experienced and should not be concerned about unless it worsens for no apparent reason. If so, please contact the office. 5. We will provide appropriate medication within the normal guidelines of their prescribed use. We will also be very cautious and aware of potential abuse and extended duration of patients' medication needs. a. Pain medications are for your comfort and to assist with sleep and rest so that the tissue can heal. They are not provided in order to return to normal activity and should not be used through the day. To do so or worsening pain at night can result from ongoing tissue damage and development of tolerance to the prescribed medicine. 6. Please allow 2-3 days to process refills. Prescriptions will not be mailed but must be picked up at the office. FOLLOW UP VISIT: Keep your scheduled follow-up appointment. Any questions, please call the office at . Pending Studies at Discharge: No Stand-Alone Forms: My [facility] BitLit, Smoking Cessation Medications and [place] Order Prescriptions: New tramadol 50 mg tablet 50 mg PO Q6H PRN (Reason: pain, moderate) Qty: 30 RF: 0 oxycodone 5 mg tablet 5 mg PO Q6H PRN (Reason: pain, severe) Qty: 30 RF: 0 Continued multivitamin Tablet 1 tab PO QAM RF: 0 hydrocodone-acetaminophen 10-325 mg Tablet 1 tab PO Q12H PRN (Reason: Pain) RF: 0 tramadol 50 mg Tablet 100 mg PO Q6H PRN (Reason: Pain) RF: 0 melatonin 10 mg Tablet 10 mg PO HS PRN (Reason: Sleep) RF: 0 pseudoephedrine HCl [Sudafed] 30 mg Tablet 30 mg PO Q4 PRN (Reason: Congestion) RF: 0 cetirizine [Zyrtec] 10 mg Tablet 5 mg PO DAILY PRN (Reason: Congestion) RF: 0 Discharge Orders: Discharge Order (Routine); Ordered 07/01/19 Ordered By: Jaycob Benson Admission Data Admit Date/Time: 06/28/19 12:46 Attending Provider: Jaycob Benson Admit Provider: Jaycob Benson Primary Care Provider: Rosalinda Galvez Other Providers: Wander Armijo
== END 2019-07-01 12:10 | disposition home or self-care (01) | DRG 454 ==
LOC: ASU 07:48 → 3E 12:46